=== PATIENT | female | born 1965 | race Caucasian/White ===

== ENCOUNTER 2018-07-19 01:31 | Emergency (ER) | payer BC, OTHER ==
[2018-07-19] MEDS ORDERED: KETOROLAC TROMETHAMINE INJ/PF 30 MG/1 ML SDV IV ONE (04:16)
--- NOTE | 2018-07-19 04:50 | ER Document Report ---
ED Medical Screen (RME) - General Chief Complaint: Ear Pain Stated Complaint: EAR PAIN Time Seen by Provider: 07/19/18 04:10 Mode of Arrival: Ambulatory Information source: Patient Notes: Patient is an otherwise healthy 53-year-old female presenting with 2-day history of left ear pain and facial swelling. Patient denies history of same. Denies any fevers. Exam: Tenderness over the mastoid bone. I have greeted and performed a rapid initial assessment of this patient. A comprehensive ED assessment and evaluation of the patient, analysis of test results and completion of the medical decision making process will be conducted by additional ED providers. Dictation of this chart was performed using voice recognition software; therefore, there may be some unintended grammatical errors. TRAVEL OUTSIDE OF THE [place] IN LAST 30 DAYS: No - Related Data Allergies/Adverse Reactions: morphine Allergy (Verified 07/19/18 04:22) Sulfa (Sulfonamide Antibiotics) Allergy (Verified 07/19/18 04:22) Past Medical History Pulmonary Medical History: Reports: Hx Asthma Renal/ Medical History: Denies: Hx Peritoneal Dialysis Past Surgical History: Reports: Hx Cholecystectomy, Hx Hysterectomy - Immunizations Hx Diphtheria, Pertussis, Tetanus Vaccination: Yes - utd Physical Exam - Vital signs Vitals: Temp Pulse Resp BP Pulse Ox 98.0 F 68 18 142/75 H 96 07/19/18 01:37 07/19/18 01:37 07/19/18 01:37 07/19/18 01:37 07/19/18 01:37 Course - Vital Signs Vital signs: Temp Pulse Resp BP Pulse Ox 98.0 F 68 18 142/75 H 96 07/19/18 01:37 07/19/18 01:37 07/19/18 01:37 07/19/18 01:37 07/19/18 01:37 - Laboratory Result Diagrams: 07/19/18 04:18 07/19/18 04:18
[2018-07-19 04:54] LABS: ABSOLUTE BASOPHILS # (AUTO) 0.1 10^3/uL (0.0-0.2); ABSOLUTE LYMPHOCYTES (AUTO) 1.8 10^3/uL (0.5-4.7); ABSOLUTE MONOCYTES (AUTO) 0.5 10^3/uL (0.1-1.4); ABSOLUTE NEUT (AUTO) 9.5 10^3/uL (1.7-8.2); EOSINOPHILS % (AUTO) 7.6 % (0-6); HEMATOCRIT 40.1 % (36.0-47.0); HEMOGLOBIN 13.5 g/dL (12.0-15.5); LYMPHOCYTES % (AUTO) 13.8 % (13-45); MEAN CORPUSCULAR HEMOGLOBIN 28.1 pg (27.0-33.4); MEAN CORPUSCULAR HGB CONC 33.6 g/dL (32.0-36.0); MEAN CORPUSCULAR VOLUME 84 fl (80-97); MONOCYTES % (AUTO) 3.7 % (3-13); PLATELET COUNT 291 10^3/uL (150-450); RED CELL DISTRIBUTION WIDTH 14.2 % (11.5-14.0); SEGMENTED NEUTROPHILS % (AUTO) 73.9 % (42-78); TOTAL CELLS COUNTED % (AUTO) 100 %; WHITE BLOOD COUNT 12.8 10^3/uL (4.0-10.5)
[2018-07-19 05:17] LABS: ALANINE AMINOTRANSFERASE 26 U/L (9-52); ALBUMIN 4.5 g/dL (3.5-5.0); ALKALINE PHOSPHATASE 91 U/L (38-126); ANION GAP 15 (5-19); ASPARTATE AMINO TRANSFERASE 26 U/L (14-36); BILIRUBIN,DIRECT 0.3 mg/dL (0.0-0.4); BILIRUBIN,TOTAL 0.6 mg/dL (0.2-1.3); BLOOD UREA NITROGEN 20 mg/dL (7-20); CALCIUM 9.5 mg/dL (8.4-10.2); CARBON DIOXIDE 21 mmol/L (22-30); CHLORIDE 102 mmol/L (98-107); GLUCOSE 123 mg/dL (75-110); POTASSIUM 4.8 mmol/L (3.6-5.0); SODIUM 137.8 mmol/L (137-145); TOTAL PROTEIN 7.9 g/dL (6.3-8.2)
--- NOTE | 2018-07-19 07:26 | RADIOLOGY REPORT (SQ) ---
EXAM DESCRIPTION: CT NECK CHEST WITH IV CONTRAST COMPLETED DATE/TME: 07/19/2018 04:15 CLINICAL HISTORY: 53 years Female, eval for left mastoiditis Comparison: None. Technique: IV contrast. Coronal and sagittal reformat. This exam was performed according to our departmental dose-optimization program, which includes automated exposure control, adjustment of the mA and/or kV according to patient size and/or use of iterative reconstruction technique. [facility]: Dose Right [facility]: CareDose [facility]: Dose Right [facility]: Teradose 4D [facility]: [email or web address] LIMITATIONS: None Findings: Orbits, paranasal sinuses, and skull base: Normal. Nasopharynx: Normal. Suprahyoid neck: Normal oropharynx, oral cavity, parapharyngeal space, and retropharyngeal space. Infrahyoid neck: Normal larynx, hypopharynx, and supraglottis. Thyroid: Normal. Thoracic inlet: Normal lung apices and brachial plexus. Lymph nodes: Normal. No lymphadenopathy. Vascular structures: Normal. Other findings: Mastoid air cells appear well-developed and well-aerated. No gross CT evidence of mastoiditis, as queried. Likely cerumen of the left external auditory canal. Degenerative disc disease. Mild spondylosis. Impression: No acute findings.
--- NOTE | 2018-07-19 09:08 | ER Document Report ---
HPI - HPI Time Seen by Provider: 07/19/18 04:10 Pain Level: 4 Notes: Patient is a 53-year-old female presents to the emergency department with left ear pain. Patient states this been ongoing for a few days and that her hearing feels muffled. Patient does deny drainage from the ear. Patient denies fever. Patient denies sore throat. Patient states that the pain to the left ear feels like a throbbing and stabbing and she has had some swelling to the left cheek. Patient states she does not have any dental pain. - CONSTITUTIONAL Constitutional: DENIES: Fever, Chills - EENT EENT: REPORTS: Ear Pain - left ear - REPRODUCTIVE Reproductive: DENIES: : Past Medical History - General Information source: Patient - Social History Smoking Status: Never Smoker Cigarette use (# per day): No Chew tobacco use (# tins/day): No Frequency of alcohol use: None Drug Abuse: None Lives with: Spouse/Significant other Family History: Reviewed & Not Pertinent Patient has suicidal ideation: No Patient has homicidal ideation: No - Past Medical History Cardiac Medical History: Reports: None Pulmonary Medical History: Reports: Hx Asthma EENT Medical History: Reports: None Neurological Medical History: Reports: None Endocrine Medical History: Reports: None Renal/ Medical History: Reports: None. Denies: Hx Peritoneal Dialysis Malignancy Medical History: Reports: None GI Medical History: Reports: None Musculoskeletal Medical History: Reports None Skin Medical History: Reports None Psychiatric Medical History: Reports: None Traumatic Medical History: Reports: None Infectious Medical History: Reports: None Past Surgical History: Reports: Hx Cholecystectomy, Hx Hysterectomy - Immunizations Hx Diphtheria, Pertussis, Tetanus Vaccination: Yes - utd Vertical Provider Document - CONSTITUTIONAL Agree With Documented VS: Yes Exam Limitations: No Limitations General Appearance: No Apparent Distress Notes: GENERAL: Well-appearing, well-nourished and in no acute distress. HEAD: Atraumatic, normocephalic. Mild soft tissue swelling to left cheek. EYES: Pupils equal round and reactive to light, extraocular movements intact, sclera anicteric, conjunctiva are normal. ENT: + tenderness to the left mastoid and left tragus, bulging TM that is cloudy and unable to visualize landmarks, no perforation obvious, there is pus in the middle ear canal. Right TM normal, good light reflex with visualized landmarks. Moist mucous membranes. NECK: Normal range of motion, supple without lymphadenopathy or JVD. LUNGS: Breath sounds clear to auscultation bilaterally and equal. No wheezes rales or rhonchi. HEART: Regular rate and rhythm without murmurs, rubs or gallops. ABDOMEN: Soft, nontender, normoactive bowel sounds. No guarding, no rebound. No masses appreciated. BACK: No cervical, thoracic, lumbar midline tenderness. No saddle anesthesia, normal distal neurovascular exam. GENITOURINARY: Deferred. EXTREMITIES: Normal range of motion, no pitting or edema. No clubbing or cyanosis. NEUROLOGICAL: Cranial nerves II through XII grossly intact. Normal speech, normal gait. PSYCH: Normal mood, normal affect. SKIN: Warm, Dry, normal turgor, no rashes or lesions noted. - INFECTION CONTROL TRAVEL OUTSIDE OF THE [place] IN LAST 30 DAYS: No Course - Re-evaluation Re-evalutation: 07/19/18 Patient has significant left ear infection, will treatment with 10 day course of antibiotics. Patient to take tylenol or motrin as needed for pain. Return if facial swelling worsens, pain continues despite antibiotic treatment, she develops fever or any other concerning signs or symptoms. - Vital Signs Vital signs: Temp Pulse Resp BP Pulse Ox 98.0 F 70 18 137/70 H 94 07/19/18 06:21 07/19/18 06:21 07/19/18 06:21 07/19/18 06:21 07/19/18 06:21 - Laboratory Result Diagrams: 07/19/18 04:18 07/19/18 04:18 Laboratory results interpreted by me: 07/19/18 07/19/18 04:18 04:18 WBC 12.8 H RDW 14.2 H Eosinophils % 7.6 H Absolute Neutrophils 9.5 H Absolute Eosinophils 1.0 H Carbon Dioxide 21 L Glucose 123 H - Diagnostic Test Radiology reviewed: Reports reviewed Radiology results interpreted by me: 07/19/[address] was obtained to rule out mastoiditis due to facial swelling. The CT read as mastoid air cells appear well-developed and well-aerated. No gross CT evidence of mastoiditis. No acute findings. Discharge - Discharge Clinical Impression: Left acute suppurative otitis media Condition: Stable Disposition: HOME, SELF-CARE Additional Instructions: Today you were seen in the emergency department for left ear pain and left facial swelling. You did have a CAT scan performed which was negative for any abnormality. It was, you do have a left ear infection. I am placing you on antibiotics. Please take this for its full course and follow-up with your primary care physician or return to the emergency department for worsening of symptoms to include increased facial swelling, fever, severe left ear pain, cherie bility to open your mouth or move your jaw, or any other worsening signs or symptoms. Please take Tylenol or ibuprofen as needed for pain. *You have been evaluated for ear pain, otitis media *Take medication as prescribed *Follow up with a primary care provider *Return to ED for worsening condition, changes, needs Otitis Media You have a middle ear infection (otitis media). This is usually a complication of a cold or sore throat. The middle ear cavity becomes filled with infection. Pressure and stretching of the ear drum cause pain. Antibiotics are required. A 10 day course is usually prescribed. A decongestant may be recommended if you have a "runny nose." You may need anesthetic drops or other pain medication. A follow-up exam may be recommended to make sure the infection has completely cleared. If the ear begins to drain, it means the ear drum has ruptured. This will usually heal spontaneously. However, it means you should keep the ear dry until re-examined by a doctor. Call the physician or return for examination at once if there is severe headache, stiff neck, confusion, increasing fever, or dizziness. You should improve significantly within two days. If you're not better, call the doctor. Prescriptions: Amox Tr/Potassium Clavulanate [Augmentin 875-125 Tablet] 1 tab PO BID 10 Days #2 0 tablet Referrals: ARIS PENA MD [Primary Care Provider] - Follow up as needed
[2018-07-19] MEDS ORDERED: AMOXICILLIN TR/POT CLAVULANATE 500-125 MG TAB PO ONE (09:09)
[2018-07-19] MEDS ORDERED: AMOXICILLIN TRIHYDRATE 500 MG CAPSULE PO ONE (09:09)
[2018-07-19 09:39] VITALS: BP 131/76
== END 2018-07-19 09:39 | disposition home or self-care (01) ==
LOC: ER 01:31
DX: H66.002 Acute suppurative otitis media without spontaneous rupture of ear drum, left ear (principal); Z90.49 Acquired absence of other specified parts of digestive tract; Z90.710 Acquired absence of both cervix and uterus
CPT/HCPCS: 99283; 96374; 36415; 85025; 80053; 70491; J1885